=== PATIENT | female | born 1955 | race African-American/Black ===

== ENCOUNTER 2018-05-08 20:03 | Inpatient (IN) | payer SELFPAY ==
[~2018-05-08] VITALS: Ht 162.6 cm; Wt 73.6 kg
[2018-05-08] MEDS ORDERED: ONDANSETRON HCL 4MG/2ML VIAL IV STA (22:34)
[2018-05-08] MEDS ORDERED: MORPHINE SULFATE 4 MG/ML CPJ (NOT FOR IM USE) IV STA (22:34)
[2018-05-09] LABS: BASOPHILS % 0.3 % (0.0-2.0); EOSINOPHILS % 2.2 % (0.0-5.0); HEMATOCRIT. 44.2 % (36.0-48.0); HEMOGLOBIN. 14.9 g/dL (12.0-16.0); LYMPHOCYTES % 42.4 % (20.0-50.0); MEAN CORPUSCULAR VOLUME 94.9 fL (81.0-99.0); MONOCYTES % 6.4 % (2.0-8.0); NEUTROPHILS % 48.7 % (40.0-76.0); RED BLOOD CELL COUNT 4.66 mill/uL (4.2-5.4); RED CELL DISTRIBUTION WIDTH 13.2 % (11.6-14.6)
[2018-05-09 00:08] LABS: CHLORIDE 106 mEq/L (98-107)
[2018-05-09 00:09] LABS: PARTIAL THROMBOPLASTIN TIME 25.2 sec (23.4-31.0); PROTHROMBIN TIME 10.3 sec (9.4-11.6)
[2018-05-09 00:37] LABS: MEAN PLATELET VOLUME 6.7 fl (7.4-10.4); PLATELET 301 x1000/uL (130-400)
[2018-05-09] MEDS ORDERED: ASPIRIN 325MG TABLET PO ONE (00:45)
[2018-05-09] MEDS ORDERED: NITROGLYCERIN OINT 1GM/INCH UDPKT TD ONE (00:45)
[2018-05-09] MEDS ORDERED: IPRATROPIUM/ALBUTEROL 0.5-3(2.5)MG/3ML NEB INH PRN (01:15)
[2018-05-09] MEDS ORDERED: LORAZEPAM 2MG/ML CPJ IV PRN (01:15)
[2018-05-09] MEDS ORDERED: CLONIDINE 0.1MG TABLET PO PRN (01:15)
[2018-05-09] MEDS ORDERED: IOHEXOL-350 100 ML BOTTLE ONE (02:52)
[2018-05-09 03:55] VITALS: BP 140/65
[2018-05-09] MEDS: MORPHINE SULFATE 4 MG/ML CPJ (NOT FOR IM USE) IV PRN ×2 (05:06→23:05)
[2018-05-09 08:00] VITALS: BP 130/75
[2018-05-09] MEDS: ENOXAPARIN 40MG/0.4ML SYR SUBCUT SCH (09:15)
[2018-05-09 12:00] VITALS: BP 128/73
[2018-05-09 15:53] LABS: *AMPHETAMINES SCREEN URINE NEGATIVE (NEGATIVE); *BARBITURATES SCREEN URINE NEGATIVE (NEGATIVE)
[2018-05-09 15:54] LABS: *BENZODIAZEPINES SCREEN URINE NEGATIVE (NEGATIVE); *COCAINE SCREEN URINE NEGATIVE (NEGATIVE); METHADONE URINE SCREEN NEGATIVE (NEGATIVE); OPIATES URINE SCREEN PRESUMTIVE POSITIVE (NEGATIVE)
[2018-05-09 15:55] LABS: CANNABINOID URINE SCREEN PRESUMTIVE POSITIVE (NEGATIVE); PHENCYCLIDINE URINE SCREEN NEGATIVE (NEGATIVE)
[2018-05-09 16:00] VITALS: BP 125/86
[2018-05-09 20:01] VITALS: BP 142/73
[2018-05-09 22:00] LABS: BASOPHILS % 0.7 % (0.0-2.0); EOSINOPHILS % 2.6 % (0.0-5.0); HEMATOCRIT. 40.3 % (36.0-48.0); HEMOGLOBIN. 13.6 g/dL (12.0-16.0); LYMPHOCYTES % 44.7 % (20.0-50.0); MEAN CORPUSCULAR HEMOGLOBIN 31.8 pg (28.0-32.0); MEAN CORPUSCULAR VOLUME 94.6 fL (81.0-99.0); MEAN PLATELET VOLUME 6.5 fl (7.4-10.4); MONOCYTES % 6.1 % (2.0-8.0); NEUTROPHILS % 45.9 % (40.0-76.0); PLATELET 266 x1000/uL (130-400); RED BLOOD CELL COUNT 4.26 mill/uL (4.2-5.4); RED CELL DISTRIBUTION WIDTH 13.4 % (11.6-14.6)
[2018-05-09 22:06] LABS: CHLORIDE 106 mEq/L (98-107)
[2018-05-09 22:15] LABS: CREATINE KINASE 157 IU/L (26-192)
[2018-05-09 22:17] LABS: CREATINE KINASE MB FRACTION 1.3 ng/mL (0.5-3.6)
[2018-05-10] VITALS: BP 142/65
[2018-05-10 04:00] VITALS: BP 133/72
[2018-05-10 06:19] LABS: BASOPHILS % 0.3 % (0.0-2.0); EOSINOPHILS % 3.2 % (0.0-5.0); HEMATOCRIT. 40.1 % (36.0-48.0); HEMOGLOBIN. 13.5 g/dL (12.0-16.0); LYMPHOCYTES % 49.9 % (20.0-50.0); MEAN CORPUSCULAR HEMOGLOBIN 32.1 pg (28.0-32.0); MEAN CORPUSCULAR VOLUME 94.9 fL (81.0-99.0); MEAN PLATELET VOLUME 6.9 fl (7.4-10.4); MONOCYTES % 6.8 % (2.0-8.0); NEUTROPHILS % 39.8 % (40.0-76.0); PLATELET 245 x1000/uL (130-400); RED BLOOD CELL COUNT 4.22 mill/uL (4.2-5.4); RED CELL DISTRIBUTION WIDTH 13.3 % (11.6-14.6)
[2018-05-10 07:11] LABS: CHLORIDE 107 mEq/L (98-107)
[2018-05-10 07:25] LABS: PHOSPHORUS 3.9 mg/dL (2.5-4.9)
[2018-05-10 08:00] VITALS: BP 135/72
[2018-05-10] MEDS: MORPHINE SULFATE 4 MG/ML CPJ (NOT FOR IM USE) IV PRN (08:08)
[2018-05-10] MEDS: ENOXAPARIN 40MG/0.4ML SYR SUBCUT SCH (08:09)
[2018-05-10 11:45] VITALS: BP 135/56
[2018-05-10 14:58] VITALS: BP 135/56
[2018-05-10 16:00] VITALS: BP 138/62
== END 2018-05-10 17:25 | disposition home or self-care (01) | DRG 351 ==
LOC: ER 23:29 → EDBEDREQTM 05-09 00:41 → EDBEDREQ 05-09 00:41 → SUPCPDRO 05-09 01:06 → ENRESERV 05-09 03:05 → 7WST 05-09 04:01
PROVIDERS: ADMIT Internal Medicine Nephrology; ATTEND Internal Medicine Nephrology
DX: M79.1 Myalgia (principal); I10 Essential (primary) hypertension; M25.511 Pain in right shoulder; F17.200 Nicotine dependence, unspecified, uncomplicated; M25.512 Pain in left shoulder
CPT/HCPCS: 36415; 71045; 71275; 80048; 80053; 80305; 82550; 82553; 83690; 83735; 84100; 84484; 85025; 85610; 85651; 85730; 93005; 93306; 96374; 96375; 99291; J1650; J2270; J2405; Q9967

== ENCOUNTER 2024-04-05 17:16 | Inpatient (IN) | payer OTHER, MEDICARE ==
[~2024-04-05] VITALS: Ht 162.6 cm; Wt 74.4 kg
[2024-04-05] MEDS: ACETAMINOPHEN 325MG TABLET PO ONE (17:45)
[2024-04-05] MEDS: HYDRALAZINE 20MG/ML VIAL IV ONE (19:38)
[2024-04-05 19:39] LABS: BASOPHILS % 0.4 % (0.0-2.0); EOSINOPHILS % 0.3 % (0.0-5.0); HEMATOCRIT. 32.6 % (36.0-48.0); HEMOGLOBIN. 11.6 g/dL (12.0-16.0); LYMPHOCYTES % 22.9 % (20.0-50.0); MEAN CORPUSCULAR HEMOGLOBIN 32.9 pg (28.0-32.0); MEAN CORPUSCULAR HGB CONC 35.6 g/dL (31.0-37.0); MEAN CORPUSCULAR VOLUME 92.4 fL (81.0-99.0); MEAN PLATELET VOLUME 6.3 fl (7.4-10.4); MONOCYTES % 6.7 % (2.0-8.0); NEUTROPHILS % 69.7 % (40.0-76.0); PLATELET 237 x1000/uL (130-400); RED BLOOD CELL COUNT 3.52 mill/uL (4.2-5.4); RED CELL DISTRIBUTION WIDTH 13.5 % (11.6-14.6); WHITE BLOOD COUNT 5.9 x1000/uL (4.5-11.0)
[2024-04-05 19:59] LABS: INR 1.1; PROTHROMBIN TIME 12.1 sec (9.6-11.0)
[2024-04-05 20:00] LABS: CHLORIDE 105 mEq/L (98-107); SODIUM 139 mEq/L (136-145)
[2024-04-05 20:01] LABS: CARBON DIOXIDE 28 mEq/L (21-32)
[2024-04-05 20:06] LABS: CREATININE 0.8 mg/dL (0.6-1.0); GLUCOSE 90 mg/dL (70-105); UREA NITROGEN BLOOD 11 mg/dL (9-23)
[2024-04-05 20:18] LABS: POTASSIUM 1.5 mEq/L (3.5-5.1)
[2024-04-05 20:28] LABS: TROPONIN I HIGH SENSITIVITY 83 ng/L (3.0-34)
[2024-04-05] MEDS: LABETALOL 5MG/ML 4ML INJ IV ONE (21:21)
[2024-04-05] MEDS: KETOROLAC 30MG/ML VIAL IV ONE (22:06)
[2024-04-05 22:36] LABS: CALCIUM 9.2 mg/dL (8.7-10.4)
[2024-04-05 23:11] LABS: CREATININE 1.5 mg/dL (0.6-1.0)
[2024-04-05 23:14] LABS: POTASSIUM 2.3 mEq/L (3.5-5.1)
[2024-04-05 23:18] LABS: CLARITY URINE TURBID (CLEAR); COLOR URINE YELLOW (YELLOW); GLUCOSE URINE NEGATIVE (NEGATIVE); KETONES URINE NEGATIVE (NEGATIVE); LEUKOCYTE ESTERASE URINE 1+ (NEGATIVE); NITRITE URINE NEGATIVE (NEGATIVE); OCCULT BLOOD URINE 1+ (NEGATIVE); PH URINE 6.5 (4.5-8.0); PROTEIN URINE 3+ (NEGATIVE)
[2024-04-05] MEDS ORDERED: KCL 20MEQ/100ML PREMIX 100 ML IV SCH (23:30)
[2024-04-05 23:33] LABS: BACTERIA URINE 4+; SQUAMOUS EPITHELIAL CELL URINE 2+ /lpf (RARE/1+)
[2024-04-06] MEDS: ASPIRIN 325MG TABLET PO ONE (00:02)
[2024-04-06] MEDS: POTASSIUM CHLORIDE 20MEQ/PACKET PO ONE (00:02)
[2024-04-06] MEDS: MAGNESIUM 2 G PREMIX 50 ML IV ONE (00:12)
[2024-04-06] MEDS: SODIUM CHLORIDE 0.9% 500 ML IV ONE (00:12)
[2024-04-06] MEDS: KCL 20MEQ/100ML PREMIX 100 ML IV SCH (02:02)
[2024-04-06] MEDS: CLONIDINE 0.1MG TABLET PO PRN (05:55)
[2024-04-06] MEDS: HYDRALAZINE 20MG/ML VIAL IV PRN (05:58)
[2024-04-06 08:00] VITALS: BP 187/89; PULSE 85; RESP 18; TEMP 97.4
[2024-04-06] MEDS ORDERED: NALOXONE HCL 0.4MG/ML VIAL IV PRN (10:15)
[2024-04-06] MEDS ORDERED: CLONIDINE 0.1MG TABLET PO PRN (11:00)
[2024-04-06] MEDS ORDERED: ACETAMINOPHEN 650MG/20.3ML UDC GT PRN (11:00)
[2024-04-06] MEDS ORDERED: METOPROLOL TARTRATE 25MG TABLET PO SCH (11:00)
[2024-04-06] MEDS ORDERED: ACETAMINOPHEN 325MG TABLET PO PRN (11:00)
[2024-04-06] MEDS ORDERED: HYDRALAZINE HCL 50MG TABLET PO SCH (11:00)
[2024-04-06] MEDS ORDERED: ONDANSETRON HCL 4MG/2ML INJ IV PRN (11:00)
[2024-04-06 12:00] VITALS: BP 156/80; PULSE 94; RESP 16; TEMP 97
[2024-04-06 13:21] VITALS: BP 187/89; PULSE 85; RESP 18; TEMP 97.9
[2024-04-06 13:27] LABS: BASOPHILS % 0.4 % (0.0-2.0); EOSINOPHILS % 0.4 % (0.0-5.0); HEMATOCRIT. 41.1 % (36.0-48.0); HEMOGLOBIN. 14.2 g/dL (12.0-16.0); LYMPHOCYTES % 25.6 % (20.0-50.0); MEAN CORPUSCULAR HEMOGLOBIN 31.9 pg (28.0-32.0); MEAN CORPUSCULAR HGB CONC 34.5 g/dL (31.0-37.0); MEAN CORPUSCULAR VOLUME 92.6 fL (81.0-99.0); MEAN PLATELET VOLUME 6.4 fl (7.4-10.4); MONOCYTES % 7.6 % (2.0-8.0); PLATELET 296 x1000/uL (130-400); RED BLOOD CELL COUNT 4.44 mill/uL (4.2-5.4); RED CELL DISTRIBUTION WIDTH 13.6 % (11.6-14.6); WHITE BLOOD COUNT 6.7 x1000/uL (4.5-11.0)
[2024-04-06 13:45] LABS: POTASSIUM 2.9 mEq/L (3.5-5.1)
[2024-04-06 13:47] LABS: CALCIUM 8.8 mg/dL (8.7-10.4)
[2024-04-06 13:51] LABS: CREATININE 1.2 mg/dL (0.6-1.0)
[2024-04-06] MEDS: SODIUM CHLORIDE 0.9% 1,000 ML IV SCH (14:10)
[2024-04-06] MEDS: AMLODIPINE 10MG TABLET PO SCH (14:11)
[2024-04-06] MEDS: HYDRALAZINE HCL 50MG TABLET PO SCH (14:11)
[2024-04-06] MEDS: POTASSIUM CHLORIDE 20MEQ TABLET SR PO SCH (14:11)
[2024-04-06] MEDS: ENOXAPARIN 30MG/0.3ML SYR SUBCUT SCH (14:12)
[2024-04-06 16:00] VITALS: BP 153/86; PULSE 102; RESP 18; TEMP 97.6
[2024-04-06 19:09] LABS: CREATININE URINE RANDOM 70.1 mg/dL
[2024-04-06 20:00] VITALS: BP 141/67; PULSE 98; RESP 20; TEMP 98.1
[2024-04-06 20:25] LABS: T4 FREE 1.22 ng/dL (0.89-1.76); THYROID STIMULATING HORMONE 1.09 uIU/mL (0.55-4.78)
[2024-04-06] MEDS: METOPROLOL TARTRATE 50MG TABLET PO SCH (20:28)
[2024-04-06] MEDS: FAMOTIDINE 20MG TABLET PO SCH (20:28)
[2024-04-07] VITALS: BP 148/66; PULSE 80; RESP 18; TEMP 98.2
[2024-04-07 00:13] LABS: CREATINE KINASE MB FRACTION 3.1 ng/mL (0.5-3.6)
[2024-04-07 04:00] VITALS: BP 148/63; PULSE 77; RESP 20; TEMP 97.6
[2024-04-07 07:15] LABS: BASOPHILS % 0.5 % (0.0-2.0); EOSINOPHILS % 1.5 % (0.0-5.0); HEMATOCRIT. 38.1 % (36.0-48.0); HEMOGLOBIN. 13.1 g/dL (12.0-16.0); LYMPHOCYTES % 35.7 % (20.0-50.0); MEAN CORPUSCULAR HEMOGLOBIN 31.9 pg (28.0-32.0); MEAN CORPUSCULAR HGB CONC 34.4 g/dL (31.0-37.0); MEAN CORPUSCULAR VOLUME 92.5 fL (81.0-99.0); MEAN PLATELET VOLUME 6.6 fl (7.4-10.4); MONOCYTES % 8.8 % (2.0-8.0); NEUTROPHILS % 53.5 % (40.0-76.0); PLATELET 283 x1000/uL (130-400); RED BLOOD CELL COUNT 4.12 mill/uL (4.2-5.4); RED CELL DISTRIBUTION WIDTH 13.7 % (11.6-14.6); WHITE BLOOD COUNT 5.5 x1000/uL (4.5-11.0)
[2024-04-07 07:18] LABS: CHLORIDE 95 mEq/L (98-107); POTASSIUM 3.2 mEq/L (3.5-5.1); SODIUM 133 mEq/L (136-145)
[2024-04-07 07:19] LABS: CARBON DIOXIDE 30 mEq/L (21-32)
[2024-04-07 07:20] LABS: CALCIUM 8.7 mg/dL (8.7-10.4)
[2024-04-07 07:24] LABS: CREATININE 1.1 mg/dL (0.6-1.0); GLUCOSE 118 mg/dL (70-105)
[2024-04-07 07:25] LABS: UREA NITROGEN BLOOD 14 mg/dL (9-23)
[2024-04-07 07:27] LABS: CREATINE KINASE 127 IU/L (34-145); CREATINE KINASE MB FRACTION 2.9 ng/mL (0.5-3.6)
[2024-04-07 08:00] VITALS: BP 162/88; PULSE 78; RESP 16; TEMP 97.5
[2024-04-07 08:14] LABS: TROPONIN I HIGH SENSITIVITY 372 ng/L (3.0-34)
[2024-04-07] MEDS: ASPIRIN 81MG TABLET PO SCH (09:35)
[2024-04-07] MEDS: MAGNESIUM GLUCONATE 500MG TABLET PO NR (09:35)
[2024-04-07] MEDS: SPIRONOLACTONE 12.5MG TABLET PO SCH (09:37)
[2024-04-07 12:00] VITALS: BP 169/81; PULSE 85; RESP 16; TEMP 98
[2024-04-07 14:01] LABS: TROPONIN I HIGH SENSITIVITY 396 ng/L (3.0-34)
[2024-04-07 16:00] VITALS: BP 163/85; PULSE 81; RESP 16; TEMP 97.6
[2024-04-07 17:38] LABS: TROPONIN I HIGH SENSITIVITY 411 ng/L (3.0-34)
[2024-04-07 17:40] LABS: TROPONIN I HIGH SENSITIVITY 402 ng/L (3.0-34)
[2024-04-07 20:00] VITALS: BP 150/79; PULSE 73; RESP 19; TEMP 99.1
[2024-04-07] MEDS: METOPROLOL TARTRATE 100MG TABLET PO SCH (20:49)
[2024-04-08] VITALS: BP 149/70; PULSE 65; RESP 20; TEMP 97.9
[2024-04-08 07:02] LABS: BASOPHILS % 0.1 % (0.0-2.0); EOSINOPHILS % 1.4 % (0.0-5.0); HEMATOCRIT. 37.4 % (36.0-48.0); HEMOGLOBIN. 12.6 g/dL (12.0-16.0); MEAN CORPUSCULAR HEMOGLOBIN 31.9 pg (28.0-32.0); MEAN CORPUSCULAR HGB CONC 33.8 g/dL (31.0-37.0); MEAN CORPUSCULAR VOLUME 94.6 fL (81.0-99.0); MEAN PLATELET VOLUME 6.8 fl (7.4-10.4); NEUTROPHILS % 53.5 % (40.0-76.0); PLATELET 271 x1000/uL (130-400); RED BLOOD CELL COUNT 3.96 mill/uL (4.2-5.4); RED CELL DISTRIBUTION WIDTH 13.9 % (11.6-14.6); WHITE BLOOD COUNT 5.8 x1000/uL (4.5-11.0)
[2024-04-08 07:38] LABS: CALCIUM 8.6 mg/dL (8.7-10.4); CARBON DIOXIDE 29 mEq/L (21-32); CHLORIDE 100 mEq/L (98-107); POTASSIUM 3.7 mEq/L (3.5-5.1); SODIUM 136 mEq/L (136-145)
[2024-04-08 07:44] LABS: GLUCOSE 104 mg/dL (70-105); UREA NITROGEN BLOOD 11 mg/dL (9-23)
[2024-04-08 08:00] VITALS: BP 135/80; PULSE 88; RESP 18; TEMP 98
[2024-04-08] MEDS: MORPHINE SULFATE 2 MG/ML CPJ (NOT FOR IM USE) IV PRN (08:53)
[2024-04-08] MEDS ORDERED: HYDR100T26 PO (09:53)
[2024-04-08] MEDS ORDERED: SPIR25TA6 MT (09:54)
[2024-04-08] MEDS ORDERED: METO-411 PO (09:55)
[2024-04-08] MEDS: MAGNESIUM 1 G PREMIX 100 ML IV NR (11:26)
[2024-04-08] MEDS: CLONIDINE 0.1MG TABLET PO SCH (11:36)
[2024-04-08 12:00] VITALS: BP 136/86; PULSE 76; RESP 18; TEMP 98
[2024-04-08] MEDS: MAGNESIUM 2 G PREMIX 50 ML IV NR (12:36)
[2024-04-08 13:34] VITALS: BP 139/88; PULSE 88; TEMP 98.1; O2SAT 97
[2024-04-08 16:00] VITALS: BP 139/85; PULSE 75; RESP 18; TEMP 98.1
[2024-04-08 16:32] VITALS: BP 123/68; PULSE 68; RESP 18
[2024-04-08] MEDS: HYDROCODONE/ACETAMINOPHEN 5/325MG TABLET PO PRN (16:32)
== END 2024-04-08 20:24 | disposition home or self-care (01) | DRG 281 ==
LOC: ER 17:16 → 5WST 04-06 01:17 → 7EST 04-06 07:57
PROVIDERS: ADMIT Internal Medicine Nephrology; ATTEND Internal Medicine Nephrology
DX: I16.0 Hypertensive urgency (principal); E87.1 Hypo-osmolality and hyponatremia; I21.A1 Myocardial infarction type 2; N17.9 Acute kidney failure, unspecified; N39.0 Urinary tract infection, site not specified; E87.3 Alkalosis; I16.1 Hypertensive emergency; I13.0 Hypertensive heart and chronic kidney disease with heart failure and stage 1 through stage 4 chronic kidney disease, or unspecified chronic kidney disease; E87.6 Hypokalemia; R55 Syncope and collapse; D63.8 Anemia in other chronic diseases classified elsewhere; Z91.199 Patient's noncompliance with other medical treatment and regimen due to unspecified reason; E83.42 Hypomagnesemia; E87.5 Hyperkalemia; E83.41 Hypermagnesemia; E87.8 Other disorders of electrolyte and fluid balance, not elsewhere classified; F17.200 Nicotine dependence, unspecified, uncomplicated; I50.9 Heart failure, unspecified; N18.9 Chronic kidney disease, unspecified; S00.03XA Contusion of scalp, initial encounter; W01.0XXA Fall on same level from slipping, tripping and stumbling without subsequent striking against object, initial encounter; Y93.01 Activity, walking, marching and hiking; Y92.89 Other specified places as the place of occurrence of the external cause; Y99.8 Other external cause status
CPT/HCPCS: 36415; 71045; 76770; 80048; 81003; 82550; 82553; 82570; 82962; 83036; 83735; 84132; 84156; 84439; 84443; 84484; 85025; 86850; 86900; 93005; 93306; 99285; J0360; J1650; J1885; J2270; J3475; J3480; J3490; J7030; J7040

== ENCOUNTER 2024-06-24 09:43 | Emergency (ER) | payer OTHER, MEDICARE ==
[~2024-06-24] VITALS: Ht 160 cm; Wt 77.1 kg
[~2024-06-24 09:43] MED LIST: HYDR100T26 PO; METO-411 PO; SPIR25TA6 MT
[2024-06-24 09:55] VITALS: O2SAT 98
[2024-06-24 10:49] LABS: BASOPHILS % 0.3 % (0.0-2.0); EOSINOPHILS % 0.2 % (0.0-5.0); HEMATOCRIT. 42.6 % (36.0-48.0); HEMOGLOBIN. 14.4 g/dL (12.0-16.0); LYMPHOCYTES % 12.2 % (20.0-50.0); MEAN CORPUSCULAR HEMOGLOBIN 31.6 pg (28.0-32.0); MEAN CORPUSCULAR HGB CONC 33.9 g/dL (31.0-37.0); MEAN CORPUSCULAR VOLUME 93.3 fL (81.0-99.0); MEAN PLATELET VOLUME 6.7 fl (7.4-10.4); MONOCYTES % 1.9 % (2.0-8.0); NEUTROPHILS % 85.4 % (40.0-76.0); PLATELET 351 x1000/uL (130-400); RED BLOOD CELL COUNT 4.57 mill/uL (4.2-5.4); RED CELL DISTRIBUTION WIDTH 14.5 % (11.6-14.6)
[2024-06-24 10:59] LABS: CHLORIDE 102 mEq/L (98-107); POTASSIUM 3.4 mEq/L (3.5-5.1); SODIUM 135 mEq/L (136-145)
[2024-06-24 11:00] LABS: CALCIUM 9.9 mg/dL (8.7-10.4); CARBON DIOXIDE 26 mEq/L (21-32)
[2024-06-24 11:03] LABS: CLARITY URINE TURBID (CLEAR); COLOR URINE YELLOW (YELLOW); GLUCOSE URINE NEGATIVE (NEGATIVE); KETONES URINE TRACE (NEGATIVE); NITRITE URINE NEGATIVE (NEGATIVE); OCCULT BLOOD URINE NEGATIVE (NEGATIVE); PH URINE 5.5 (4.5-8.0); PROTEIN URINE 3+ (NEGATIVE); SPECIFIC GRAVITY URINE 1.016 (1.005-1.030)
[2024-06-24 11:04] LABS: LEUKOCYTE ESTERASE URINE 2+ (NEGATIVE)
[2024-06-24 11:05] LABS: CREATININE 1.3 mg/dL (0.6-1.0); GLUCOSE 133 mg/dL (70-105); UREA NITROGEN BLOOD 15 mg/dL (9-23)
[2024-06-24 11:07] LABS: ALANINE AMINOTRANSFERASE 10 IU/L (10-49); ALBUMIN 4.7 g/dL (3.2-4.8); ASPARTATE AMINOTRANSFERASE 17 IU/L (<34); BILIRUBIN TOTAL 0.3 mg/dL (0.1-1.0); PROTEIN TOTAL 8.2 g/dL (6.0-8.3)
[2024-06-24 11:09] LABS: BILIRUBIN DIRECT < 0.1 mg/dL (<=3.0)
[2024-06-24 11:26] LABS: SQUAMOUS EPITHELIAL CELL URINE 2+ /lpf (RARE/1+)
[2024-06-24 11:28] LABS: BACTERIA URINE 4+; RBC URINE 0-2 /hpf (0-2); WBC URINE TNTC /hpf (0-2)
[2024-06-24] MEDS: ACETAMINOPHEN 325MG TABLET PO ONE (12:00)
[2024-06-24] MEDS ORDERED: NITROFURANTOIN MACROCRYSTAL 25MG CAPSULE PO ONE (13:00)
[2024-06-24] MEDS: NITROFURANTOIN MACROCRYSTAL 50MG CAPSULE PO NR (13:30)
[2024-06-24] MEDS ORDERED: CEFP200T13 MT (18:44)
[2024-06-24 20:13] VITALS: BP 123/81; PULSE 80; RESP 18; TEMP 37.00296; O2SAT 98
[2024-06-24] MEDS ORDERED: IOHEXOL-350 100 ML BOTTLE ONE (23:31)
== END 2024-06-24 20:32 | disposition home or self-care (01) ==
LOC: ER 09:43
DX: K52.9 Noninfective gastroenteritis and colitis, unspecified (principal); I10 Essential (primary) hypertension
CPT/HCPCS: 99285; 74177; 76830; 76856; 80076; 80048; 81003; 85025; 86850; 86900; 86901; 87086; 36415; Q9967